=== PATIENT | female | born 1990 | race Two or more races ===

== ENCOUNTER → 2017-02-28 | Outpatient (CLI) | payer MEDICAID ==
[2017-02-28 09:41] LABS: Basophils # (auto) 0 uL; Basophils % (auto) 0.3 % (0.0-2.0); CONDITION Y; Eosinophils # (auto) 0 uL; Eosinophils % (auto) 0.2 % (0.0-7.0); Hematocrit 35.9 % (36.0-46.0); Hemoglobin 12.4 g/dL (12.2-16.2); Lymphocytes # (auto) 1.8 uL; Lymphocytes % (auto) 26.6 % (10.0-50.0); Mean Corpuscular Hemoglobin 30.4 pg (28.0-32.0); Mean Corpuscular Hgb Conc. 34.7 g/dL (32.0-36.0); Mean Corpuscular Volume 87.6 fL (80.0-100.0); Mean Platelet Volume 7.8 fL (7.4-10.4); Monocytes # (auto) 0.4 uL; Monocytes % (auto) 5.5 % (0.0-12.0); Neutrophils # (auto) 4.7 uL; Neutrophils % (auto) 67.4 % (37.0-80.0); Platelet Count (auto) 296 10^3/uL (140-450); Red Cell Distribution Width 13.6 % (11.6-16.0); White Blood Cell 6.9 10^3/uL (4.4-10.8)
== END | disposition home or self-care (01) ==
LOC: LAB 08:56
PROVIDERS: ATTEND Obstetrics & Gynecology
DX: Z34.80 Encounter for supervision of other normal pregnancy, unspecified trimester (principal); Z11.3 Encounter for screening for infections with a predominantly sexual mode of transmission; Z31.430 Encounter of female for testing for genetic disease carrier status for procreative management
CPT/HCPCS: 36415; 80307; 84144; 84702; 85025; 86592; 86703; 86762; 86850; 86900; 86901; 87086; 87340

== ENCOUNTER 2017-03-11 11:35 | Emergency (ER) | payer MEDICAID ==
[~2017-03-11] VITALS: Ht 154.9 cm; Wt 73.9 kg
[2017-03-11 11:50] VITALS: BP 118/67
[2017-03-11 12:47] LABS: Basophils # (auto) 0 uL; Basophils % (auto) 0.3 % (0.0-2.0); CONDITION Y; Eosinophils # (auto) 0 uL; Eosinophils % (auto) 0.3 % (0.0-7.0); Hematocrit 35.3 % (36.0-46.0); Hemoglobin 12.4 g/dL (12.2-16.2); Lymphocytes # (auto) 1.7 uL; Lymphocytes % (auto) 26.5 % (10.0-50.0); Mean Corpuscular Hemoglobin 30.6 pg (28.0-32.0); Mean Corpuscular Hgb Conc. 35.1 g/dL (32.0-36.0); Mean Corpuscular Volume 87.2 fL (80.0-100.0); Mean Platelet Volume 7.9 fL (7.4-10.4); Monocytes # (auto) 0.4 uL; Monocytes % (auto) 6.7 % (0.0-12.0); Neutrophils # (auto) 4.3 uL; Neutrophils % (auto) 66.2 % (37.0-80.0); Platelet Count (auto) 287 10^3/uL (140-450); Red Cell Distribution Width 13.4 % (11.6-16.0); White Blood Cell 6.5 10^3/uL (4.4-10.8)
[2017-03-11 13:27] LABS: Urine Bilirubin Negative (Negative); Urine Blood Negative /uL (Negative); Urine Color Yellow (Yellow); Urine Glucose Normal (Normal); Urine Ketone Negative (Negative); Urine Nitrite Negative (Negative); Urine RBC 1 /hpf (0 - 4); Urine Squamous Epithelial Cell MOD /hpf (<5); Urine Urobilinogen Normal (Negative)
== END 2017-03-11 15:16 | disposition home or self-care (01) ==
LOC: ER 11:39
DX: O23.41 Unspecified infection of urinary tract in pregnancy, first trimester (principal); O23.11 Infections of bladder in pregnancy, first trimester; Z3A.13 13 weeks gestation of pregnancy; Z91.81 History of falling; Z88.1 Allergy status to other antibiotic agents; Z91.041 Radiographic dye allergy status
CPT/HCPCS: 36415; 76801; 81001; 84702; 85025

== ENCOUNTER 2017-08-24 22:28 | Observation (INO) | payer MEDICAID ==
[2017-08-24] MEDS ORDERED: PREN-96 PO (23:13)
[2017-08-24 23:26] LABS: Urine Bacteria FEW /hpf (None Seen); Urine Blood TRACE /uL (Negative); Urine Mucus FEW (None Seen); Urine Specific Gravity 1.019 (1.001-1.035); Urine WBC 7 /hpf (0 - 5)
== END 2017-08-24 23:20 | disposition home or self-care (01) | DRG 566 ==
LOC: LDRP 22:28
PROVIDERS: ADMIT Obstetrics & Gynecology; ATTEND Obstetrics & Gynecology
DX: O26.853 Spotting complicating pregnancy, third trimester (principal); Z3A.36 36 weeks gestation of pregnancy
CPT/HCPCS: 59025; 81001; 81002; G0378

== ENCOUNTER 2017-08-30 12:35 | Observation (INO) | payer MEDICAID ==
[~2017-08-30] VITALS: Ht 154.9 cm; Wt 90.3 kg
[~2017-08-30 12:35] MED LIST: PREN-96 PO
== END 2017-08-30 20:38 | disposition home or self-care (01) | DRG 566 ==
LOC: LDRP 12:35
PROVIDERS: ADMIT Specialist; ATTEND Specialist
DX: O62.9 Abnormality of forces of labor, unspecified (principal); Z3A.37 37 weeks gestation of pregnancy
CPT/HCPCS: 59025; 76818; 81002; 82948; 82962; G0378

== ENCOUNTER 2017-09-01 12:40 | Observation (INO) | payer MEDICAID ==
[2017-09-01] MEDS ORDERED: LACTATED RINGER'S 1,000 ML IV ONE (15:10)
== END 2017-09-01 18:25 | disposition home or self-care (01) | DRG 566 ==
LOC: LDRP 12:40
PROVIDERS: ADMIT Specialist; ATTEND Specialist
DX: O24.419 Gestational diabetes mellitus in pregnancy, unspecified control (principal); O26.893 Other specified pregnancy related conditions, third trimester; O62.9 Abnormality of forces of labor, unspecified; R10.9 Unspecified abdominal pain; Z3A.37 37 weeks gestation of pregnancy
CPT/HCPCS: 59025; 76818; 81002; 82948; 82962; G0378

== ENCOUNTER 2017-09-02 08:57 | Observation (INO) | payer MEDICAID | END 2017-09-02 14:30 | disposition home or self-care (01) | DRG 566 | LOC: LDRP 08:57 | PROVIDERS: ADMIT Specialist; ATTEND Specialist | DX: O24.419 Gestational diabetes mellitus in pregnancy, unspecified control (principal); O26.859 Spotting complicating pregnancy, unspecified trimester; Z3A.37 37 weeks gestation of pregnancy | CPT/HCPCS: 59025; 76818; 81002; 82962; G0378 ==

== ENCOUNTER 2017-09-04 12:45 | Observation (INO) | payer MEDICAID | END 2017-09-04 16:05 | disposition home or self-care (01) | DRG 566 | LOC: LDRP 12:45 | PROVIDERS: ADMIT Obstetrics & Gynecology; ATTEND Obstetrics & Gynecology | DX: O24.419 Gestational diabetes mellitus in pregnancy, unspecified control (principal); O62.9 Abnormality of forces of labor, unspecified; Z3A.38 38 weeks gestation of pregnancy | CPT/HCPCS: 59025; 76818; 81002; G0378 ==

== ENCOUNTER 2017-09-05 08:05 | Observation (INO) | payer MEDICAID | END 2017-09-05 11:40 | disposition home or self-care (01) | DRG 560 | LOC: LDRP 08:05 | PROVIDERS: ADMIT Obstetrics & Gynecology; ATTEND Obstetrics & Gynecology | DX: O24.429 Gestational diabetes mellitus in childbirth, unspecified control (principal); Z3A.38 38 weeks gestation of pregnancy | CPT/HCPCS: 59025; 76818; 81002; 82962; G0378 ==

== ENCOUNTER 2017-09-06 19:02 | Inpatient (IN) | payer MEDICAID ==
[~2017-09-06] VITALS: Ht 160 cm; Wt 90.3 kg
[2017-09-06] MEDS ORDERED: LACTATED RINGER'S 1,000 ML IV SCH (19:51)
[2017-09-06] MEDS ORDERED: PHISODERM TOP SOLN 240ML BTL TOP ONE (20:00)
[2017-09-06] MEDS ORDERED: LIDOCAINE 2%HCL (LOCAL ANESTH.) INJ 20ML MDV IJ ONE (20:00)
[2017-09-06] MEDS ORDERED: TERBUTALINE SULFATE 1 MG/ML 1ML VIAL SC ONE (20:00)
[2017-09-06] MEDS ORDERED: WITCH HAZEL-GLYCERIN PAD TOP PRN (20:00)
[2017-09-06] MEDS ORDERED: DERMOPLAST 60ML BOTTLE TOP PRN (20:00)
[2017-09-06] MEDS ORDERED: PENICILLIN G POT 5MIL/D5 50ML 50 ML IV ONE (20:00)
[2017-09-06] MEDS: PENICILLIN G POTASSIUM 2,500,000 UNITS in D5W 5% 50 ML IV SCH (20:30)
[2017-09-06 20:49] LABS: Basophils # (auto) 0 uL; Basophils % (auto) 0.1 % (0.0-2.0); Eosinophils # (auto) 0 uL; Hematocrit 32.7 % (36.0-46.0); Hemoglobin 11.2 g/dL (12.2-16.2); Lymphocytes # (auto) 0.8 uL; Lymphocytes % (auto) 11.1 % (10.0-50.0); Mean Corpuscular Hemoglobin 30.6 pg (28.0-32.0); Mean Corpuscular Hgb Conc. 34.1 g/dL (32.0-36.0); Monocytes # (auto) 0.7 uL; Monocytes % (auto) 10.5 % (0.0-12.0); Neutrophils # (auto) 5.4 uL; Neutrophils % (auto) 78.3 % (37.0-80.0); Platelet Count (auto) 265 10^3/uL (140-450); Red Blood Cells 3.64 10^6/uL (4.0-5.20); Red Cell Distribution Width 13.8 % (11.8-14.3); White Blood Cell 6.8 10^3/uL (4.4-10.8)
[2017-09-06 20:54] LABS: Urine Bacteria FEW /hpf (None Seen); Urine Blood 1+ /uL (Negative); Urine Specific Gravity 1.004 (1.001-1.035); Urine WBC 1 /hpf (0 - 5)
[2017-09-06 21:03] LABS: INR 0.89 (0.9-1.15); Partial Thromboplastin Time 29.1 sec (22.64-33.71); Prothrombin Time 9.7 sec (9.37-12.3)
[2017-09-06 21:05] LABS: Albumin 2.7 g/dL (3.4-5.0); BUN/Creatinine Ratio 7.8; Bilirubin, Total 0.3 mg/dL (0.2-1.0); Calcium 8.7 mg/dL (8.5-10.1); Total Protein 6.6 g/dL (6.4-8.2)
[2017-09-06] MEDS ORDERED: NALOXONE HCL 0.4 MG/ML VIAL IV ONE (22:15)
[2017-09-06] MEDS ORDERED: LIDOCAINE HCL 2 %PF INJ 10ML AMP IJ ONE (22:15)
[2017-09-06] MEDS ORDERED: fentaNYL W ROPIVACAINE 150 ML EPI SCH (22:15)
[2017-09-06] MEDS ORDERED: ePHEDrine SULFATE 50 MG/ML AMP IV ONE (22:15)
[2017-09-06] MEDS ORDERED: fentaNYL CITRATE 100 MCG/2 ML VL ONE (22:26)
[2017-09-06] MEDS: LACT. RINGERS/OXYTOCIN 20UNITS 1,000 ML IV SCH (23:35)
[2017-09-07] VITALS (12 sets, daily range): BP systolic 94–118; BP diastolic 50–58
[2017-09-07] MEDS: LACT. RINGERS/OXYTOCIN 20UNITS 1,000 ML IV SCH (00:05)
[2017-09-07] MEDS: PENICILLIN G POTASSIUM 2,500,000 UNITS in D5W 5% 50 ML IV SCH (00:30)
[2017-09-07] MEDS ORDERED: BUPIVACAINE 0.5% P/F INJ 10 ML VIAL ONE (01:49)
[2017-09-07] MEDS ORDERED: MIDAZOLAM HCL 1MG/1ML-2 ML VIAL ONE (01:49)
[2017-09-07] MEDS ORDERED: ceFAZolin 1GM VL ONE (01:49)
[2017-09-07] MEDS ORDERED: SODIUM BICARBONATE 8.4 % INJ 50ML VIAL IV ONE (01:49)
[2017-09-07] MEDS ORDERED: OXYTOCIN 10 UNIT/ML 10ML VIAL ONE (01:49)
[2017-09-07] MEDS ORDERED: MORPHINE SULF(PF) 0.5MG/ML 10ML VIAL ONE (01:49)
[2017-09-07] MEDS ORDERED: LIDOCAINE HCL 2 %PF INJ 10ML AMP IJ ONE (01:49)
[2017-09-07] MEDS ORDERED: fentaNYL CITRATE 100 MCG/2 ML VL ONE (01:49)
[2017-09-07] MEDS ORDERED: LACTATED RINGER'S 1,000 ML IV SCH (02:03)
[2017-09-07] MEDS ORDERED: ONDANSETRON HCL 4 MG/2 ML VIAL IV PRN (02:15)
[2017-09-07] MEDS: ceFAZolin 1GM/50ML 50 ML IV SCH ×2 (02:15→09:52)
[2017-09-07] MEDS ORDERED: HYDROmorphone HCL 2 MG/ML VL IV PRN ×2 (02:15→03:00)
[2017-09-07] MEDS ORDERED: OXYTOCIN 10UNIT/ML 1ML VIAL ONE (02:37)
[2017-09-07] MEDS ORDERED: KETOROLAC TROMETH 30 MG/ML 1ML VIAL IV ONE (03:00)
[2017-09-07] MEDS ORDERED: METOCLOPRAMIDE HCL 5MG/ml INJ 2ml VIAL IV ONE (03:00)
[2017-09-07] MEDS ORDERED: diphenhdrAMINE HCL 50 MG/1 ML VL IV PRN (03:00)
[2017-09-07] MEDS ORDERED: NALOXONE HCL 0.4 MG/ML VIAL IV PRN (03:00)
[2017-09-07] MEDS: KETOROLAC TROMETH 30 MG/ML 1ML VIAL IV SCH ×3 (06:00→17:34)
[2017-09-07] MEDS: PIPERACILLIN-TAZOB 3.375GM 50 ML IV SCH ×3 (12:08→22:53)
[2017-09-07] MEDS ORDERED: ceFAZolin 1GM/50ML 50 ML IV SCH (18:00)
[2017-09-07] MEDS ORDERED: AMMONIA 0.33 ML INHALANT IN ONE (19:41)
[2017-09-07] MEDS ORDERED: IBUPROFEN 800 MG TAB PO ONE (19:56)
[2017-09-07] MEDS: HYDROcodone-ACET 5/325MG TAB PO PRN (21:50)
[2017-09-07] MEDS: SIMETHICONE 80 MG CHEWABLE TABLET PO SCH (22:22)
[2017-09-08] MEDS: HYDROcodone-ACET 5/325MG TAB PO PRN ×7 (02:30→19:56)
[2017-09-08 03:30] VITALS: BP 113/56
[2017-09-08] MEDS: PIPERACILLIN-TAZOB 3.375GM 50 ML IV SCH ×3 (05:42→17:46)
[2017-09-08] MEDS: SIMETHICONE 80 MG CHEWABLE TABLET PO SCH ×4 (05:56→22:22)
[2017-09-08 07:22] LABS: Basophils # (auto) 0 uL; Basophils % (auto) 0.1 % (0.0-2.0); Eosinophils # (auto) 0 uL; Hematocrit 28.1 % (36.0-46.0); Hemoglobin 9.8 g/dL (12.2-16.2); Lymphocytes # (auto) 1.1 uL; Lymphocytes % (auto) 15.5 % (10.0-50.0); Mean Corpuscular Hemoglobin 31.8 pg (28.0-32.0); Mean Corpuscular Hgb Conc. 34.8 g/dL (32.0-36.0); Mean Corpuscular Volume 91.4 fL (80.0-100.0); Monocytes # (auto) 0.6 uL; Monocytes % (auto) 7.7 % (0.0-12.0); Neutrophils # (auto) 5.6 uL; Neutrophils % (auto) 76.7 % (37.0-80.0); Platelet Count (auto) 214 10^3/uL (140-450); Red Blood Cells 3.08 10^6/uL (4.0-5.20); White Blood Cell 7.3 10^3/uL (4.4-10.8)
[2017-09-08 08:00] VITALS: BP 100/59
[2017-09-08] MEDS: DOCUSATE CALCIUM 240 MG CAP PO SCH (09:23)
[2017-09-08] MEDS: IBUPROFEN 800 MG TAB PO PRN ×2 (09:24→17:48)
[2017-09-08] MEDS: DOCUSATE SOD 100 MG CAP PO SCH ×3 (09:25→22:22)
[2017-09-08 12:00] VITALS: BP 99/58
[2017-09-08 15:50] VITALS: BP 86/52
[2017-09-08 19:00] VITALS: BP 99/56
[2017-09-08 23:00] VITALS: BP 90/51
[2017-09-09] MEDS: HYDROcodone-ACET 5/325MG TAB PO PRN ×5 (00:20→20:30)
[2017-09-09] MEDS: PIPERACILLIN-TAZOB 3.375GM 50 ML IV SCH ×2 (00:20→05:42)
[2017-09-09] MEDS: IBUPROFEN 800 MG TAB PO PRN ×4 (04:00→23:40)
[2017-09-09 04:05] VITALS: BP 99/51
[2017-09-09] MEDS: SIMETHICONE 80 MG CHEWABLE TABLET PO SCH ×4 (05:45→21:36)
[2017-09-09 07:40] VITALS: BP 94/46
[2017-09-09] MEDS: DOCUSATE CALCIUM 240 MG CAP PO SCH (10:42)
[2017-09-09] MEDS: DOCUSATE SOD 100 MG CAP PO SCH ×2 (10:42→21:36)
[2017-09-09 12:00] VITALS: BP 100/51
[2017-09-09 15:40] VITALS: BP 94/52
[2017-09-09] MEDS ORDERED: TETANUS-DIPTH-ACEL PERTUSSIS 0.5ML SYRG IM ONE (17:15)
[2017-09-09 18:45] VITALS: BP 109/61
[2017-09-09 23:00] VITALS: BP 106/63
[2017-09-10] MEDS: HYDROcodone-ACET 5/325MG TAB PO PRN (02:54)
[2017-09-10 03:00] VITALS: BP 98/62
[2017-09-10] MEDS: SIMETHICONE 80 MG CHEWABLE TABLET PO SCH (05:45)
[2017-09-10] MEDS: IBUPROFEN 800 MG TAB PO PRN (07:56)
[2017-09-10 08:15] VITALS: BP 99/55
[2017-09-10] MEDS: DOCUSATE CALCIUM 240 MG CAP PO SCH (10:20)
[2017-09-10] MEDS: DOCUSATE SOD 100 MG CAP PO SCH (10:20)
== END 2017-09-10 10:50 | disposition home or self-care (01) | DRG 540 ==
LOC: LDRP 19:02
PROVIDERS: ADMIT Specialist; ATTEND Specialist
PROC: 10D00Z1 Extraction of Products of Conception, Low, Open Approach (ICD-10-PCS; principal; 2017-09-07 01:10)
DX: O76 Abnormality in fetal heart rate and rhythm complicating labor and delivery (principal); O24.420 Gestational diabetes mellitus in childbirth, diet controlled; Z23 Encounter for immunization; O99.824 Streptococcus B carrier state complicating childbirth; O69.1XX0 Labor and delivery complicated by cord around neck, with compression, not applicable or unspecified; Z37.0 Single live birth; Z3A.38 38 weeks gestation of pregnancy
CPT/HCPCS: 36415; 59025; 62282; 74018; 80053; 81001; 82948; 82962; 85025; 85610; 85730; 86850; 86900; 86901; 90715; 93971; 94760; 94762; 96361; 96365; 96366; 96372; 96374; J0690; J1885; J2250; J2405; J2540; J2543; J2590; J3010; J3490; J7060

== ENCOUNTER 2017-09-24 10:17 | Emergency (ER) | payer MEDICAID ==
[~2017-09-24] VITALS: Ht 154.9 cm; Wt 81.6 kg
[2017-09-24 10:34] VITALS: BP 108/65
== END 2017-09-24 11:09 | disposition home or self-care (01) ==
LOC: ER 10:17
DX: O90.89 Other complications of the puerperium, not elsewhere classified (principal); B35.6 Tinea cruris; Z91.048 Other nonmedicinal substance allergy status